=== PATIENT | female | born 1975 | race Two or more races ===

== ENCOUNTER 2018-05-03 11:48 | Emergency (ER) | payer MEDICAID, OTHER ==
[~2018-05-03] VITALS: Ht 160 cm; Wt 74.5 kg
[2018-05-03 12:58] LABS: MICROSCOPIC AUTO
[2018-05-03 12:59] LABS: BASOPHILS # (AUTO) 0.04 x10^3/uL (0-0.1); BASOPHILS % (AUTO) 0 % (0-1); EOSINOPHILS # (AUTO) 0.11 x10^3/uL (0-0.4); EOSINOPHILS % (AUTO) 1 % (1-7); LYMPHOCYTES # (AUTO) 2.38 x10^3/uL (1-3.4); LYMPHOCYTES % (AUTO) 26 % (22-44); MD NO; MEAN CORPUSCULAR HEMOGLOBIN 31.2 pg (27.0-34.8); MEAN CORPUSCULAR HGB CONC 34.5 g/dL (32.4-35.8); MEAN CORPUSCULAR VOLUME 90.5 fL (80-100); MEAN PLATELET VOLUME 7.1 fL (7.4-10.4); MONOCYTES # (AUTO) 0.72 x10^3/uL (0.2-0.8); MONOCYTES % (AUTO) 8 % (2-9); NEUTROPHILS # (AUTO) 5.98 x10^3/uL (1.8-6.8); NEUTROPHILS % (AUTO) 65 % (42-75); PLATELET COUNT 317 x10^3/uL (130-400); RED BLOOD COUNT 3.78 x10^6/uL (3.82-5.3); RED CELL DISTRIBUTION WIDTH 14.2 % (9.6-15.2)
[2018-05-03 13:01] LABS: CULTURE INDICATED? YES
[2018-05-03 13:10] LABS: ALANINE AMINOTRANSFERASE 15 U/L (12-78); ALBUMIN 3.1 g/dL (3.4-5.0); ANION GAP 7 mmol/L (5-15); CALCIUM 8.4 mg/dL (8.5-10.1); CHLORIDE 108 mmol/L (98-107); CREATININE 0.48 mg/dL (0.55-1.02)
[2018-05-03 13:28] LABS: ALKALINE PHOSPHATASE 65 U/L (45-117); BILIRUBIN,TOTAL 0.2 mg/dL (0.2-1.0)
[2018-05-03 15:08] VITALS: BP 127/61
== END 2018-05-03 15:10 | disposition home or self-care (01) ==
LOC: ED 13:03
DX: O23.11 Infections of bladder in pregnancy, first trimester (principal); Z3A.13 13 weeks gestation of pregnancy
CPT/HCPCS: 36415; 76801; 80053; 81001; 83690; 84702; 85025; 87086; 99284

== ENCOUNTER 2018-09-27 11:34 | Observation (INO) | payer MEDICAID ==
[~2018-09-27] VITALS: Ht 160 cm; Wt 85.0 kg
[2018-09-27 12:33] VITALS: BP 137/78
[2018-09-27] MEDS ORDERED: PREN1TAB60 PO (12:33)
[2018-09-27 12:44] LABS: AMPHETAMINE SCREEN, URINE Negative (Negative); BARBITURATE SCREEN, URINE Negative (Negative); BENZODIAZEPINE SCREEN, URINE Negative (Negative); CANNABINOID SCREEN, URINE Negative (Negative); COCAINE SCREEN, URINE Negative (Negative); METHADONE SCREEN, URINE Negative (Negative); OPIATE SCREEN, URINE Negative (Negative)
[2018-09-27 12:51] LABS: BASOPHILS # (AUTO) 0.04 x10^3/uL (0-0.1); BASOPHILS % (AUTO) 0 % (0-1); EOSINOPHILS # (AUTO) 0.08 x10^3/uL (0-0.4); EOSINOPHILS % (AUTO) 1 % (1-7); LYMPHOCYTES % (AUTO) 22 % (22-44); MD NO; MEAN CORPUSCULAR HEMOGLOBIN 31.5 pg (27.0-34.8); MEAN CORPUSCULAR HGB CONC 33.5 g/dL (32.4-35.8); MEAN PLATELET VOLUME 7.2 fL (7.4-10.4); MONOCYTES # (AUTO) 0.79 x10^3/uL (0.2-0.8); MONOCYTES % (AUTO) 8 % (2-9); NEUTROPHILS # (AUTO) 6.42 x10^3/uL (1.8-6.8); NEUTROPHILS % (AUTO) 69 % (42-75); PLATELET COUNT 321 x10^3/uL (130-400); RED BLOOD COUNT 4.01 x10^6/uL (3.82-5.3); RED CELL DISTRIBUTION WIDTH 13.8 % (9.6-15.2)
[2018-09-27 13:02] LABS: ALANINE AMINOTRANSFERASE 11 U/L (12-78); ALBUMIN 2.7 g/dL (3.4-5.0); ANION GAP 11 mmol/L (5-15); CALCIUM 8.7 mg/dL (8.5-10.1); CHLORIDE 108 mmol/L (98-107); CREATININE 0.55 mg/dL (0.55-1.02)
[2018-09-27 13:04] LABS: ALKALINE PHOSPHATASE 150 U/L (45-117); TOTAL PROTEIN 6.9 g/dL (6.4-8.2)
[2018-09-27 13:08] LABS: MICROSCOPIC INDICATED
[2018-09-27 13:26] LABS: BILIRUBIN, DIRECT < 0.1 mg/dL (0.1-0.2); BILIRUBIN,TOTAL 0.1 mg/dL (0.2-1.0)
== END 2018-09-27 15:18 | disposition home or self-care (01) ==
LOC: LDOP 11:34 → LDIP 14:32
PROVIDERS: ADMIT Obstetrics & Gynecology; ATTEND Obstetrics & Gynecology
DX: O62.9 Abnormality of forces of labor, unspecified (principal); Z3A.36 36 weeks gestation of pregnancy
CPT/HCPCS: 36415; 76805; 80053; 80307; 81001; 82248; 84550; 85025; 86592; 86762; 86803; 86850; 86900; 87081; 87086; 87147; 87340; 87491; 87591; 87806; G0378; 59025; 99211; G0463; G0475

== ENCOUNTER 2018-09-30 08:42 | Outpatient (CLI) | payer MEDICAID ==
[~2018-09-30] VITALS: Ht 154.9 cm; Wt 85.0 kg
[~2018-09-30 08:42] MED LIST: PREN1TAB60 PO
[2018-09-30 09:20] LABS: AMPHETAMINE SCREEN, URINE Negative (Negative); BARBITURATE SCREEN, URINE Negative (Negative); BENZODIAZEPINE SCREEN, URINE Negative (Negative); CANNABINOID SCREEN, URINE Negative (Negative); COCAINE SCREEN, URINE Negative (Negative); METHADONE SCREEN, URINE Negative (Negative); OPIATE SCREEN, URINE Negative (Negative)
== END 2018-09-30 12:02 | disposition home or self-care (01) ==
LOC: LDOP 08:42
PROVIDERS: ATTEND Obstetrics & Gynecology
DX: Z34.93 Encounter for supervision of normal pregnancy, unspecified, third trimester (principal); Z3A.36 36 weeks gestation of pregnancy
CPT/HCPCS: 59025; 76819; 80307; 99211; G0463

== ENCOUNTER 2018-10-15 21:37 | Inpatient (IN) | payer MEDICAID ==
[~2018-10-15] VITALS: Ht 160 cm; Wt 85.0 kg
[2018-10-15 22:24] LABS: MICROSCOPIC INDICATED
[2018-10-15 22:32] LABS: AMPHETAMINE SCREEN, URINE Negative (Negative); BARBITURATE SCREEN, URINE Negative (Negative); BENZODIAZEPINE SCREEN, URINE Negative (Negative); CANNABINOID SCREEN, URINE Negative (Negative); COCAINE SCREEN, URINE Negative (Negative); METHADONE SCREEN, URINE Negative (Negative); OPIATE SCREEN, URINE Negative (Negative)
[2018-10-15 22:58] LABS: CREATININE,URINE RANDOM 19.7 mg/dL
[2018-10-15 23:06] LABS: BASOPHILS # (AUTO) 0.04 x10^3/uL (0-0.1); BASOPHILS % (AUTO) 1 % (0-1); EOSINOPHILS % (AUTO) 1 % (1-7); LYMPHOCYTES # (AUTO) 1.79 x10^3/uL (1-3.4); LYMPHOCYTES % (AUTO) 20 % (22-44); MD NO; MEAN CORPUSCULAR HEMOGLOBIN 31.3 pg (27.0-34.8); MEAN CORPUSCULAR HGB CONC 33.1 g/dL (32.4-35.8); MEAN CORPUSCULAR VOLUME 94.5 fL (80-100); MEAN PLATELET VOLUME 7.3 fL (7.4-10.4); MONOCYTES # (AUTO) 0.83 x10^3/uL (0.2-0.8); MONOCYTES % (AUTO) 9 % (2-9); NEUTROPHILS % (AUTO) 69 % (42-75); PLATELET COUNT 289 x10^3/uL (130-400); RED BLOOD COUNT 3.94 x10^6/uL (3.82-5.3); RED CELL DISTRIBUTION WIDTH 14.1 % (9.6-15.2)
[2018-10-15 23:22] LABS: ALANINE AMINOTRANSFERASE 11 U/L (12-78); ALBUMIN 2.7 g/dL (3.4-5.0); ANION GAP 8 mmol/L (5-15); CALCIUM 8.5 mg/dL (8.5-10.1); CHLORIDE 110 mmol/L (98-107)
[2018-10-15 23:23] LABS: BILIRUBIN, DIRECT < 0.1 mg/dL (0.1-0.2)
[2018-10-15 23:25] LABS: ALKALINE PHOSPHATASE 166 U/L (45-117); TOTAL PROTEIN 6.8 g/dL (6.4-8.2)
[2018-10-15 23:28] LABS: BILIRUBIN,TOTAL < 0.1 mg/dL (0.2-1.0)
[2018-10-15] MEDS ORDERED: OXYTOCIN 30U/ 0.9% NaCL 500ML 500 ML IV ONE (23:33)
[2018-10-15] MEDS: D5%-LACTATED RINGERS 1,000 ML IV SCH (23:33)
[2018-10-15] MEDS ORDERED: NEWBORN KIT ONE (23:34)
[2018-10-15] MEDS ORDERED: LIDOCAINE 1%, 20ML ONE (23:34)
[2018-10-15] MEDS ORDERED: MISOPROSTOL 200 MCG TABLET ONE (23:35)
[2018-10-15] MEDS ORDERED: MISOPROSTOL 25 MCG TABLET ONE (23:37)
[2018-10-15] MEDS ORDERED: OXYTOCIN 30U/ 0.9% NaCL 500ML 500 ML ONE (23:38)
[2018-10-16] MEDS ORDERED: METOCLOPRAMIDE 5 MG/ML, 2ML IVPush PRN
[2018-10-16] MEDS ORDERED: SODIUM CITRATE/CITRIC ACID 15 ML UDC PO PRN
[2018-10-16] MEDS ORDERED: FENTANYL PF 100 MCG/2ML IV PRN
[2018-10-16] MEDS ORDERED: TERBUTALINE 1 MG/ML, 1ML SQ PRN
[2018-10-16] MEDS ORDERED: PENICILLIN GK 2,500,000 UNITS in DEXTROSE 5% 100 ML IVPB SCH
[2018-10-16] MEDS ORDERED: ONDANSETRON 2MG/ML, 2ML IVPush PRN
[2018-10-16] MEDS ORDERED: ALUMINUM/MAG/SIMETHICONE 30 ML UDC PO PRN
[2018-10-16] MEDS ORDERED: PENICILLIN GK 5,000,000 UNITS in DEXTROSE 5% 100 ML IVPB ONE
[2018-10-16] MEDS ORDERED: TERBUTALINE 1 MG/ML, 1ML IVPush PRN ×2
[2018-10-16] MEDS ORDERED: FENTANYL PF 100 MCG/2ML IVPush PRN
[2018-10-16] MEDS: MISOPROSTOL 25 MCG TABLET VG PRN ×2 (00:12→04:52)
[2018-10-16] MEDS: LACTATED RINGERS 1,000 ML IV SCH ×4 (00:16→16:34)
[2018-10-16 00:20] VITALS: BP 154/83
[2018-10-16] MEDS ORDERED: FENTANYL/BUPIV./NS/PF 250 ML EPIDCONT SCH (02:12)
[2018-10-16] MEDS ORDERED: MAGNESIUM SULF. PMX 20GM/500ML 500 ML IV ONE ×2 (03:05→13:55)
[2018-10-16] MEDS ORDERED: MAGNESIUM SULFATE PMX 4GM/100M 100 ML ONE (03:05)
[2018-10-16] MEDS ORDERED: MAGNESIUM SULFATE PMX 4GM/100M 100 ML IVPB ONE (03:30)
[2018-10-16] MEDS: MAGNESIUM SULF. PMX 20GM/500ML 500 ML IV SCH ×2 (04:02→14:27)
[2018-10-16] MEDS ORDERED: MISOPROSTOL 25 MCG TABLET ONE (04:21)
[2018-10-16] MEDS: D5%-LACTATED RINGERS 1,000 ML IV SCH ×2 (07:33→15:33)
[2018-10-16] MEDS ORDERED: OXYTOCIN 30U/ 0.9% NaCL 500ML 500 ML IV PRN (08:49)
[2018-10-16] MEDS ORDERED: MISOPROSTOL 200 MCG TABLET ONE (12:02)
[2018-10-16] MEDS ORDERED: BUPIVACAINE 0.25% ONE (12:05)
[2018-10-16] MEDS ORDERED: EPHEDRINE 50 MG/ML, 1ML ONE (12:49)
[2018-10-16] MEDS ORDERED: EPHEDRINE 50 MG/ML, 1ML IVPush ONE (13:00)
[2018-10-16] MEDS ORDERED: LACTATED RINGERS 1,000 ML INTUTE PRN ×2 (16:30)
[2018-10-16] MEDS ORDERED: MISOPROSTOL 200 MCG TABLET SL PRN (18:30)
[2018-10-16] MEDS ORDERED: RHOGAM FROM BLOOD BANK 1 NOTE EA IM/IV ONE (18:30)
[2018-10-16] MEDS ORDERED: ONDANSETRON 2MG/ML, 2ML IV PRN (18:30)
[2018-10-16] MEDS ORDERED: MEASLES,MUMPS&RUBELLA VACC/PF 0.5 ML SQ-VACC PRN (18:30)
[2018-10-16] MEDS ORDERED: IBUPROFEN 600 MG TABLET PO PRN (18:30)
[2018-10-16] MEDS ORDERED: DIPH,PERTUSS(ACELL),TET VAC/PF NC IM-VACC PRN (18:30)
[2018-10-16] MEDS ORDERED: ACETAMINOPHEN 325 MG TABLET PO PRN ×2 (18:30)
[2018-10-16] MEDS ORDERED: MAGNESIUM HYDROXIDE 8%, 30ML UDC PO PRN (18:30)
[2018-10-16] MEDS ORDERED: CALCIUM CARBONATE 500 MG TAB.CHEW PO PRN ×2 (18:30)
[2018-10-16] MEDS ORDERED: OXYcodone/APAP 5/325MG TABLET ONE ×2 (18:43→22:54)
[2018-10-16] MEDS: OXYTOCIN 30U/ 0.9% NaCL 500ML 500 ML IV SCH ×2 (18:45→21:03)
[2018-10-16] MEDS: OXYcodone/APAP 5/325MG TABLET PO PRN ×2 (18:46→22:59)
[2018-10-16] MEDS ORDERED: ONDANSETRON 2MG/ML, 2ML ONE (19:39)
[2018-10-16 20:00] VITALS: BP 152/79
[2018-10-16] MEDS ORDERED: OXYTOCIN 30U/ 0.9% NaCL 500ML 500 ML ONE (20:57)
[2018-10-16] MEDS ORDERED: DOCUSATE 100 MG CAPSULE ONE (22:54)
[2018-10-16] MEDS: DOCUSATE 100 MG CAPSULE PO PRN (22:59)
[2018-10-17] VITALS: BP 142/73
[2018-10-17] MEDS ORDERED: MAGNESIUM SULF. PMX 20GM/500ML 500 ML IV ONE ×2 (00:34→10:52)
[2018-10-17] MEDS: MAGNESIUM SULF. PMX 20GM/500ML 500 ML IV SCH ×2 (00:37→11:00)
[2018-10-17 02:25] LABS: BASOPHILS # (AUTO) 0.08 x10^3/uL (0-0.1); BASOPHILS % (AUTO) 1 % (0-1); EOSINOPHILS # (AUTO) 0.02 x10^3/uL (0-0.4); EOSINOPHILS % (AUTO) 0 % (1-7); LYMPHOCYTES # (AUTO) 1.84 x10^3/uL (1-3.4); LYMPHOCYTES % (AUTO) 13 % (22-44); MD NO; MEAN CORPUSCULAR HEMOGLOBIN 31.2 pg (27.0-34.8); MEAN CORPUSCULAR HGB CONC 33.1 g/dL (32.4-35.8); MEAN CORPUSCULAR VOLUME 94.3 fL (80-100); MEAN PLATELET VOLUME 7.2 fL (7.4-10.4); MONOCYTES # (AUTO) 1.07 x10^3/uL (0.2-0.8); MONOCYTES % (AUTO) 8 % (2-9); NEUTROPHILS # (AUTO) 10.98 x10^3/uL (1.8-6.8); NEUTROPHILS % (AUTO) 79 % (42-75); PLATELET COUNT 245 x10^3/uL (130-400); RED CELL DISTRIBUTION WIDTH 13.7 % (9.6-15.2)
[2018-10-17] MEDS ORDERED: OXYcodone/APAP 5/325MG TABLET ONE (03:29)
[2018-10-17] MEDS: OXYcodone/APAP 5/325MG TABLET PO PRN ×2 (03:31→20:50)
[2018-10-17 03:40] VITALS: BP 132/61
[2018-10-17 07:20] VITALS: BP 139/67
[2018-10-17] MEDS: PRENATAL VIT/IRON/FA 1 EACH TABLET PO SCH (09:00)
[2018-10-17] MEDS ORDERED: ACETAMINOPHEN 325 MG TABLET ONE (13:37)
[2018-10-17 17:38] VITALS: BP 136/63
[2018-10-17 20:00] VITALS: BP 128/77
[2018-10-18] VITALS: BP 122/70
[2018-10-18 04:00] VITALS: BP 130/76
[2018-10-18 07:33] VITALS: BP 134/76
[2018-10-18] MEDS: OXYcodone/APAP 5/325MG TABLET PO PRN ×2 (07:41→12:05)
[2018-10-18] MEDS: DOCUSATE 100 MG CAPSULE PO PRN (07:42)
[2018-10-18] MEDS: PRENATAL VIT/IRON/FA 1 EACH TABLET PO SCH (07:42)
[2018-10-18] MEDS ORDERED: IBUP-1222 PO (11:21)
[2018-10-18] MEDS ORDERED: OXYC-302 PO (11:22)
[2018-10-18 12:32] VITALS: BP 116/71
== END 2018-10-18 16:00 | disposition home or self-care (01) | DRG 807 ==
LOC: LDOP 21:37 → LDIP 23:36 → 2NW 10-17 18:02
PROVIDERS: ADMIT Obstetrics & Gynecology; ATTEND Obstetrics & Gynecology
PROC: 10E0XZZ Delivery of Products of Conception, External Approach (ICD-10-PCS; principal; 2018-10-16)
PROC: 3E0E7GC Introduction of Other Therapeutic Substance into Products of Conception, Via Natural or Artificial Opening (ICD-10-PCS; 2018-10-16)
PROC: 10H07YZ Insertion of Other Device into Products of Conception, Via Natural or Artificial Opening (ICD-10-PCS; 2018-10-16)
DX: O14.14 Severe pre-eclampsia complicating childbirth (principal); Z37.0 Single live birth; E66.9 Obesity, unspecified; O69.1XX0 Labor and delivery complicated by cord around neck, with compression, not applicable or unspecified; O76 Abnormality in fetal heart rate and rhythm complicating labor and delivery; O99.214 Obesity complicating childbirth; Z3A.38 38 weeks gestation of pregnancy
CPT/HCPCS: 36415; 80053; 80307; 81001; 82248; 82570; 82803; 83735; 84156; 84550; 85025; 86850; 86900; 87081; 89060; 90715; G0378; J2405; J2540; J3490; J2590; J3010; J3475; J7120; Q0114